=== PATIENT | female | born 2000 | race Caucasian/White ===

== ENCOUNTER 2023-01-05 17:23 | Emergency (ER) | payer OTHER, SELFPAY ==
[2023-01-05 17:41] VITALS: BP 102/68; PULSE 124; RESP 18; TEMP 37.7; O2SAT 97; BMI 32.5
--- NOTE | 2023-01-05 17:48 | ED_ITS ---
HPI - General Adult General Chief complaint: Skin/Abscess/Foreign Body <Thony Osborne - Last Filed: 01/05/23 17:49> Stated complaint: Cyst on L thigh <Thony Osborne - Last Filed: 01/05/23 17:49> Time Seen by Provider: 01/05/23 18:32 <Thony Osborne - Last Filed: 01/05/23 17:49> Source: patient <RENA Krishnan - Last Filed: 01/06/23 16:54> Mode of arrival: ambulatory <RENA Krishnan - Last Filed: 01/06/23 16:54> Limitations: no limitations <RENA Krishnan - Last Filed: 01/06/23 16:54> History of Present Illness HPI narrative: 22-year-old female presents to ED for redness and swelling and left lower aspect of abdomen since yesterday. Patient states yesterday was a bump and she scratched the area and than is red and tender on palpation. Rest of thyroid negative for swelling, redness, fever, or chills. <RENA Krishnan - Last Filed: 01/06/23 16:54> Related Data Home medications: Previous Rx's Medication Instructions Recorded cephalexin 500 mg capsule 500 mg PO QID 7 days #28 caps 01/05/23 doxycycline hyclate 100 mg tablet 100 mg PO BID 7 days #14 tabs 01/05/23 naproxen 500 mg tablet 500 mg PO BID PRN pain 7 days #14 01/05/23 tabs ondansetron HCl 4 mg tablet 4 mg PO Q6-8H PRN nausea and 01/05/23 vomiting 3 days #12 tabs oxycodone 5 mg capsule 5 mg PO TID PRN pain 3 days #9 caps 01/05/23 <Thony Osborne - Last Filed: 01/05/23 17:49> Allergies/adverse reactions: Allergies Allergy/AdvReac Type Severity Reaction Status Date / Time doxycycline AdvReac Vomiting Verified 01/05/23 17:41 <Thony Osborne - Last Filed: 01/05/23 17:49> Review of Systems Review of Systems: left lower abdomen redness and swelling <RENA Krishnan - Last Filed: 01/06/23 16:54> Yes all other systems are reviewed and are negative <RENA Krishnan Last Filed: 01/06/23 16:54> [facility] Social History Social History: Social History Advance Directives: No Advance Directives Information Provided: No <Thony Osborne - Last Filed: 01/05/23 17:49> Physical Exam ED Vital Signs: Vital Signs - 24 hr 01/05/23 17:41 Temperature 99.8 F Pulse Rate 124 H Respiratory Rate 18 Blood Pressure 102/68 Pulse Oximetry 97 Oxygen Delivery Method Room Air BMI result Body Mass Index 32.5 <Thony Osborne - Last Filed: 01/05/23 17:49> Vital Signs - 24 hr 01/05/23 17:41 Temperature 99.8 F Pulse Rate 124 H Respiratory Rate 18 Blood Pressure 102/68 Pulse Oximetry 97 Oxygen Delivery Method Room Air BMI result Body Mass Index 32.5 <RENA Krishnan Last Filed: 01/06/23 16:54> Const General: cooperative, healthy appearing, comfortable, no acute distress, well developed, alert, awake and Physically active <RENA Krishnan Last Filed: 01/06/23 16:54> Orientation/consciousness: oriented to person, oriented to place, oriented to time and patient oriented x3 <RENA Krishnan Last Filed: 01/06/23 16:54> HENMT Head: Yes normal to inspection, Yes No palpable skull fracture present, Yes normocephalic, Yes atraumatic and No abrasion <RENA Krishnan Last Filed: 01/06/23 16:54> Eyes General: appearance normal, both eyes and all related structures <RENA Krishnan Last Filed: 01/06/23 16:54> Neck Neck: Yes normal visual inspection, Yes full ROM, Yes no lymphadenopathy, Yes no meningeal signs, Yes trachea midline, Yes supple, No anterior neck swelling and No tender <RENA Krishnan Last Filed: 01/06/23 16:54> Chest Chest palpation & inspection: normal inspection of the chest and normal palpation of entire chest wall <RENA Krishnan Last Filed: 01/06/23 16:54> Resp Effort & Inspection: normal respiratory effort and able to speak in complete sentences <RENA Krishnan - Last Filed: 01/06/23 16:54> Auscultation: clear to auscultation bilaterally <RENA Krishnan Last Filed: 01/06/23 16:54> Cardio Jugular venous distension: no JVD <RENA Krishnan - Last Filed: 01/06/23 16:54> Heart sounds: S1 normal heart sound present and S2 normal heart sound present <RENA Krishnan - Last Filed: 01/06/23 16:54> GI Inspection: Yes normal to inspection and No abdominal wall ecchymosis <RENA Krishnan Last Filed: 01/06/23 16:54> Palpation (GI): Soft to palpation, not firm, Tenderness to palpation present (GI) in the LLQ, no guarding and not rigid <RENA Krishnan - Last Filed: 01/06/23 16:54> Abdomen image: 1. positive for redness and tenderness on palpation. negative for fluctulance. area is hard. no pus drainage. left lower extremity normal and negative for swelling/redness/red streaks/tenderness/calf pain <Thony Osborne - Last Filed: 01/05/23 17:49> 1. positive for redness and tenderness on palpation. negative for fluctulance. area is hard. no pus drainage. left lower extremity normal and negative for swelling/redness/red streaks/tenderness/calf pain <RENA Krishnan Dorian Last Filed: 01/06/23 16:54> General: No CVA tenderness and Yes no CVA tenderness <RENA Krishnan Last Filed: 01/06/23 16:54> Back/Spine/Pelvis Back: no CVA tenderness, No CVA tenderness and No back tenderness <RENA Krishnan Last Filed: 01/06/23 16:54> Skin General skin exam: no rashes or lesions noted and elasticity normal <RENA Krishnan Last Filed: 01/06/23 16:54> Neuro General: oriented to person, oriented to place, oriented to time, patient oriented x3, gait normal, tone normal, moves all extremities, Normal light touch and pain sensation, no meningeal signs, no focal motor deficits, CN's II-XI intact bilaterally and normal sensation to monofilament <RENA Krishnan Last Filed: 01/06/23 16:54> Extrem Other: Left lower extremity normal negative for swelling, redness, tenderness, re d streaks, calf pain <RENA Krishnan - Last Filed: 01/06/23 16:54> General: Yes normal to inspection and Yes full ROM <RENA Krishnan Last Filed: 01/06/23 16:54> Psych Appearance: grossly normal, well kempt and not disheveled <RENA Krishnan Last Filed: 01/06/23 16:54> Course Course Course Narrative: 22 year old female presents for evaluation of a cyst to her left upper leg. Not visualized in triage <Thony Osborne - Last Filed: 01/05/23 17:49> Reevaluation(s) Reevaluation #1: Bedside ultrasound placed every redness which shows cobblestone cellulitis skin changes and negative for pus collection. Patient educated on warm compress 4 times a day for 15 minutes compliance with antibiotics <RENA Krishnan Last Filed: 01/06/23 16:54> Time: 19:19 <RENA Krishnan Last Filed: 01/06/23 16:54> Medical Decision Making Medical Decision Making MDM Narrative: 22-year-old female presents to the ED for painful area redness left lower abdominal area tenderness on palpation. Patient not in distress. Ultrasound negative for pus collection more cellulitic, stone presentation. Early abscess versus cellulitis. Left lower extremity negative for swelling, redness, red streaks, calf pain, ecchymosis, bluish black discoloration. History physical exam not concerned for DVT, compartment syndrome, arterial occlusion. Not Suspecting fracture or necrotizing fascitis <RENA Krishnan Last Filed: 01/06/23 16:54> Differential Diagnosis Differential Diagnoses: The differential diagnosis associated with the presentation includes (Cellulitis, abscess,) <RENA Krishnan Last Filed: 01/06/23 16:54> Prescription Management I considered prescription management with: Pain Medication and Antibiotic <RENA Krishnan Last Filed: 01/06/23 16:54> Discharge Plan Discharge Clinical Impression: Cellulitis <Thony Osborne - Last Filed: 01/05/23 17:49> Patient Disposition: Home, Self-Care <Thony Osborne - Last Filed: 01/05/23 17:49> Instructions: Cellulitis (ED), Cellulitis (DC), Warm Compress or Soak (ED) <Thony Osborne - Last Filed: 01/05/23 17:49> Additional Instructions: Return to the ED for worsening pain, increased swelling, worsening redness, red streaks, pus discharge, foul odor, fever, chills, swelling of left lower extremity, or any other concerning symptoms. Please follow-up with primary care provider. Recommend warm compresses 4 times a day for 15 minutes. <Thony Osborne - Last Filed: 01/05/23 17:49> Prescriptions: New cephalexin 500 mg capsule 500 mg PO QID 7 Days Qty: 28 0RF doxycycline hyclate 100 mg tablet 100 mg PO BID 7 Days Qty: 14 0RF ondansetron HCl 4 mg tablet 4 mg PO Q6-8H PRN (Reason: nausea and vomiting) 3 Days Qty: 12 0RF naproxen 500 mg tablet 500 mg PO BID PRN (Reason: pain) 7 Days Qty: 14 0RF oxycodone 5 mg capsule 5 mg PO TID PRN (Reason: pain) 3 Days Qty: 9 0RF Rx Instructions: Partial Fill upon patient request. for severe pain <Thony Osborne - Last Filed: 01/05/23 17:49> Stand Alone Forms: Work/School Release <Thony Osborne - Last Filed: 01/05/23 17:49> Interventions: ED Discharge Assessment Last Done: 01/05/23 19:36 <Thony Osborne - Last Filed: 01/05/23 17:49> Discharge Date/Time: 01/05/23 19:36 <Thony Osborne - Last Filed: 01/05/23 17:49> Print Language: Ecuadorean <Thony Osborne - Last Filed: 01/05/23 17:49>
== END 2023-01-05 19:36 | disposition home or self-care (01) ==
PROVIDERS: Emergency Provider Emergency Medicine
DX: L03.311 Cellulitis of abdominal wall (principal); R10.32 Left lower quadrant pain
CPT/HCPCS: 99282; 99283

== ENCOUNTER 2025-08-06 12:56 | Outpatient (AMB) | payer OTHER, SELFPAY ==
--- OUTSIDE RECORDS SUMMARY | 2024-03-12 08:00 | XMS_ITS ---
Author Organization [employer] Address [facility] [address] [address] Care Team Providers Care Awning Frame Maker Name Role Phone Lily Coleman Unavailable [phone] DIANE LOGAN Unavailable [phone] REASON FOR VISIT MED CHECK Encounters Encounter Location Date Provider Diagnosis [email or web address] [address] [address] 03/12/2024 DIANE LGOAN Encounter for surveillance of contraceptive pills Z30.41 Assessments Encounter Date Diagnosis (ICD Code) Assessment Notes Treatment Notes Treatment Clinical Notes Section Notes 03/12/2024 Encounter for surveillance of contraceptive pills (ICD-10 - Z30.41) No contraindications to estrogen-containing contraception. Reviewed symptoms of thromboembolic events using the ACHES acronym. Reviewed importance of safer sex and encouraged condom use. 03/12/2024 Other Plan Of Treatment Treatment Notes Assessment Notes Encounter for surveillance o f contraceptive pills No contraindications to estrogen-contain ing contraception. Reviewed symptoms of thromboembolic events using the ACHES acronym. Reviewed importance of safer sex and encouraged condom use. Next Appt Details Follow Up: prn, Reason: Progress Notes * SHANEKA COTEDOB:2000 (25 yo F)Acc No.[id number]:03/12/2024 PROGRESS NOTES Patient: SHANEKA LOU Provider: Keagan LOGAN MD :2000 A ge:23 Y S ex:Female Date:03/12/2024 Address:[address] [place] [address] [address] [id number] Subjective: * Chief Complaints: * 1 . MED CHECK. * HPI: G YN: Shaneka is a 23 yo here for hormonal contraception follow-up. She is happy with her choice of contraceptives. Contraception: C ontraception: O ral contraceptives (OCPs) Sprintec Last menstrual period: _ . Menses Duration: _ . Menstrual Frequency: _ . Menstrual Quality: _ . * ROS: G eneral/Constitutional: Patient denies w eight gain, weight loss. D enies H eadache. O phthalmologic: Denies E ye problems. B reast: Denies B reast pain. C ardiovascular: Denies C hest pain. G astrointestinal: Denies A bdominal pain. D enies N ausea. D enies V omiting. W omen Only: Denies H eavy bleeding during menses. G enitourinary: Denies A bdominal pain/swelling. M usculoskeletal: Denies L eg cramps. * Medical History: O ther asthma, Chlamydial infection, unspecified, Gonococcal infection, unspecified, Endometriosis, unspecified, Pelvic Pain, Personal history of other diseases of the female genital tract, COVID-19. * Client Service Supervisor History: G ravida/ Para 1 /0. S exual activity c urrently sexually active. L ast Pap Smear: P ap not indicated due to age. L MP and menses . H istory of STD's: C hlamydia, Gonorrhea. B irth Control: c ondoms. G ardasil: h as not had vaccine. * OB History: T otal pregnancies 1 . T otal living children 0 . M iscarriage(s) 1 - no surgery needed. Objective: * Vitals: * Examination: G eneral Examination: GENERAL APPEARANCE: w ell developed, well nourished. ? Assessment: * Assessment: 1. E ncounter for surveillance of contraceptive pills - Z30.41 (Primary) Plan: * Treatment: * Preventive Medicine: T here are risks to being on estrogen-containing contraception (pills, patch, vaginal ring.) The risks are low for healthy people. The risks increase with the presence of high blood pressure, diabetes, migraines with aura, a family history of clotting disorders and if you are a smoker over the age of 35. It appears to me that you have none of these risk factors. Despite not having risk factors, your risk is not zero. The biggest and scariest risk is the formation of blood clots in your blood vessels, which can lead to heart attacks, stroke, pulmonary embolism and . I want you to be aware of the warning signs using the ACHES acronym. You should call immediately with severe Abdominal pain, Chest pain, severe Headaches, Eye changes, or Severe leg cramps. * Follow Up: p rn * Images: Billing Information: * Visit Code: * Procedure Codes: * Electronic signature of DIANE LOGAN MD on 08/06/2025 at 01:18 PM EST Sign off status: Pending * Provider: Keagan LOGAN MD Date: 0 03/12/2024 Generated for Brayodn guerrero/Lorena/Antolinitting on: 10/06/2024 01:18 PM EST History and Physical Notes * HPI (History of Present Illness) Category Sub-Category Detail Notes Category Not es [employer] Last menstrual period: Menses Duration: Menstrual Frequency: Menstrual Quality: Contraception: Contraception:: Oral contracepti ves (OCPs) Sprintec Examination Category Sub-Category Detail Notes Category Not es General Examination GENERAL APPEARANCE: well developed , well nourished
--- OUTSIDE RECORDS SUMMARY | 2024-11-13 08:00 | XMS_ITS ---
Author Organization [employer] Address [facility] [address] [address] Care Team Providers Care Windows Server Architect Name Role Phone Lily Coleman Unavailable [phone] DIANE LOGAN Unavailable [phone] REASON FOR VISIT Annual SUPERVISOR GRINDING Physical Encounters Encounter Location Date Provider Diagnosis [facility] [address] [address] 11/13/2024 DIANE LOGAN Encounter for gynecological examination (general) (routine) without abnormal findings Z01.419 and Encounter for screening for infections with a predominantly sexual mode of transmission Z11.3 Assessments Encounter Date Diagnosis (ICD Code) Assessment Notes Treatment Notes Treatment Clinical Notes Section Notes 11/13/2024 Encounter for gynecological examination (general) (routine) without abnormal findings (ICD-10 - Z01.419) Discussed cervical cancer screening with cytology every 3 years as per ASCCP guidelines. Advised continued annual pelvic exams. Patient encouraged to increase her level of exercise. SBE technique encouraged/tau ght. Safe sexual practices and STI prevention discussed. 11/13/2024 Encounter for screening for infections with a predominantly sexual mode of transmission (ICD-10 - Z11.3) Plan Of Treatment Treatment Notes Assessment Notes Encounter for gynecological examination (general) (routine) without abnormal findings Discussed cervical cancer screening with cytology every 3 years as per ASCCP guidelines. Advised continued annual pelvic exams. Patient encouraged to increase her level of exercise. SBE technique encouraged/taught. Safe sexual practices and STI prevention discussed. Next Appt Details Follow Up: 1 Year, Reason: Y early Clerical And Office Support Workers Exam Progress Notes * SHANEKA COTEDOB:2000 (25 yo F)Acc No.[id number]:11/13/2024 PROGRESS NOTES Patient: SHANEKA LOU Provider: Keagan LOGAN MD :2000 A ge:24 Y S ex:Female Date:11/13/2024 Address:[address] [place] [address] Subjective: * Chief Complaints: * 1 . Annual SUPERVISOR GRINDING Physical. 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 She delivered a baby girl on 09/05/24. She has had her visit. S he has been in state of good health since her last exam. She has the following concerns: S he has received the [employer] Covid-19 vaccine. R elationship status: *partnered for . She is sexually active. Sexual partner(s): male. She does wish to have STI testing. She was treated for Chlamydia last year and canceled her appointment in 02/2024 for rescreening. She accepts CDC- recommended GC/CT screening. M enses: *monthly, lasting 5-7 days, heavier to start, then tapering. Overall moderate flow. No intermenstrual bleeding. C ontraception: Nexplanon - inserted 09/07/24 T he patient has never had an abnormal pap. Last pap 11/12/23 - NIL. Next due in 2026. T he patient does* exercise. She exercises x 1 days/week by using the treadmill or stair stepper. She also walks when she can. * ROS: A nnual Clerical And Office Support Workers Exam ROS: Bowel habit changes d enies. B ladder symptoms d enies. V aginal discharge, unusual d enies. V aginal itch or odor d enies. w eight or appetite changes d enies. C hest pains, SOB d enies. d epression d enies.? B reast: Denies B reast lump. D enies N ipple discharge.? H ematology: Denies S wollen glands. S kin: Patient denies c hanging moles. P sychiatric: Denies A nxiety. * Medical History: * Clerical And Office Support Workers History: G ravida/ Para 2 /1011. S exual activity c urrently sexually active. L ast Pap Smear: P ap not indicated due to age. L MP and menses . H istory of STD's: C hlamydia, Gonorrhea. B irth Control: N explanon, inserted 09/07/24. G ardasil: h as not had vaccine. * OB History: T otal pregnancies 2 . T otal living children 1 . N VD 1 . M iscarriage(s) 1 - no surgery needed. P regnancy # 1: n ormal spontaneous vaginal delivery (), 09/05/24, girl, 3165 g. Objective: * Vitals: * Examination: G eneral Examination: GENERAL APPEARANCE: i n no acute distress,well developed, well nourished,utilization management manager present in room. HEAD: n ormocephalic, atraumatic. NECK/THYROID: n abhilash supple, full range of motion,thyroid normal. LYMPH NODES: n o axillary or supraclavicular adenopathy.? SKIN: n ormal,good turgor,no rashes,no suspicious lesions.? BREASTS: n ormal,no dimpling,no discharge,no drainage,no masses palpable bilaterally,nontender. ABDOMEN: s oft, non-tender, non distended without masses or hepatosplenomegay. BACK: n o costovertebral angle tenderness. FEMALE GENITOURINARY: V ulva without lesions or masses, vagina pink without abnormal discharge, lesions or masses, cervix appears normal and is not tender to palpation, uterus is normal size, mobile, nontender and anteverted, ovaries are not palpable. NEUROLOGIC: a lert and oriented,gait normal. PSYCH: a lert, oriented,cognitive function intact,cooperative with exam,good eye contact,mood/affect full range,speech clear. Assessment: * Assessment: 1. E ncounter for gynecological examination (general) (routine) without abnormal findings - Z01.419 (Primary) 2 . E ncounter for screening for infections with a predominantly sexual mode of transmission - Z11.3 Plan: * Treatment: * Follow Up: 1 Year (Reason: Yearly Clerical And Office Support Workers Exam) * Images: Billing Information: * Visit Code: 74333 Preventive Care Est Pt. Age 18-39. 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 She delivered a baby girl on 09/05/24. She has had her visit. She has been in state of good health since her last exam. She has the following concerns: She has received the [employer] Covid-19 vaccine. Relationship status: *partnered for . She is sexually active. Sexual partner(s): male. She does wish to have STI testing. She was treated for Chlamydia last year and canceled her appointment in 02/2024 for rescreening. She accepts CDC-recommended GC/CT screening. Menses: *monthly, lasting 5-7 days, heavier to start, then tapering. Overall moderate flow. No intermenstrual bleeding. Contraception: Nexplanon - inserted 09/07/24 The patient has never had an abnormal pap. Last pap 11/12/23 - NIL. Next due in 2026. The patient does* exercise. She exercises x 1 days/week by using the treadmill or stair stepper. She also walks when she can. Examination Category Sub-Category Detail Notes Category Not es General Examination GENERAL APPEARANCE: in no ac [place] distress, well developed, well nourished, utilization management manager present in room HEAD: normocephalic, atrau matic NECK/THYROID: neck supple, full ra nge of motion, thyroid normal ABDOMEN: soft, non-tender, no n distended without masses or hepatosplenomegay NEUROLOGIC: alert and oriented, gait normal SKIN: normal, good turgor, no rashes, no suspicious lesions BACK: no costovertebral an gle tenderness BREASTS: normal, no dimpling, no discharge, no drainage, no masses palpable bilaterally, nontender LYMPH NODES: no axillary or supra clavicular adenopathy PSYCH: alert, oriented, cog nitive function intact, cooperative with exam, good eye contact, mood/affect full range, speech clear FEMALE GENITOURINARY: Vulva without lesi ons or masses, vagina pink without abnormal discharge, lesions or masses, cervix appears normal and is not tender to palpation, uterus is normal size, mobile, nontender and anteverted, ovaries are not palpable
[2025-08-06 13:12] VITALS: BP 100/70; PULSE 96; TEMP 36.7; O2SAT 99; BMI 35.3
--- NOTE | 2025-08-06 13:12 | A.OFFPC_ITS ---
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 Allergies doxycycline Adverse Reaction (Verified 08/06/25 13:13) Vomiting Medication List - Last Reconciled 08/06/25 by Kristen Sharpe MD Tobacco use date assessed: 08/06/25 Dental Screening Dental Screen Date: 08/06/25 Did you have a dental visit in the last 12 months?: Yes Did you have a dental problem in the last 6 months where you did not have access to dental care?: No Was dental information given to patient?: Patient has dentist HPI HPI Comments History of Present Illness Details The patient is a 25 year old F with PMH endometriosis, eczema, MDD, and syncope presenting to [facility] care as a new patient. The patient's only current medication is an asthma inhaler. The patient reports 3 total episodes of syncope since July of last year, with the most recent event occurring last month. The episodes are preceded by dizziness and a starry sensation, and they occur randomly. The patient denies urinary incontinence or tongue pain during these events, and observers noted the patient just went pale. Prior EKG at [facility] was reportedly normal. The patient has a history of eczema and developed a widespread rash over the patient's entire body after giving . The rash appeared on the arms and legs in spots the patient is not used to, and topical steroids did not resolved it. Past medical history is notable for endometriosis, diagnosed around age 20-21, which was managed with control. Obstetric history includes one with a slightly early delivery that was not concerning. The patient's last Pap smear was before becoming in December of last year. The patient requests a referral to a psychiatrist or therapist due to feeling paralyzed and unable to accomplish tasks, a feeling that has intensified recently. The patient does not feel depressed and denies any thoughts of harming the patient's baby. There is a family history of diabetes. [facility] Family History (Updated 08/06/25 @ 13:20 by Treasure Chairez MA) Father Substance abuse Mother No problems noted. Social History Housing: House Patient Tobacco Use Status: Current someday Tobacco user (Occasionally smokes marijuana) e-Cigarette/Vaping Use: Never Used service: No Current occupational status: unemployed Cognitive needs: No Hearing needs: No Vision needs: No Questionnaire PHQ-9 Over the last 2 weeks, how often have you been bothered by any of the following problems? 1. Little interest or pleasure in doing things: several days 2. Feeling down, depressed, or hopeless: several days 3. Trouble falling or staying asleep, or sleeping too much: several days 4. Feeling tired or having little energy: several days 5. Poor appetite or overeating: several days 6. Feeling bad about yourself - or that you are a failure or have let yourself or your family down: not at all 7. Trouble concentrating on things, such as reading the newspaper or watching television: not at all 8. Moving or speaking so slowly that other people could have noticed. Or the opposite - being so fidgety or restless that you have been moving around a lot more than usual: more than half the days 9. Thoughts that you would be better off or of hurting yourself in some way: not at all Total score: 7 Depression Screening Interpretation: Positive (Referred to psych for management of depression.) Depression Screening Done: Yes Source: Developed by Drs. Willie Gonsalez, Monique Alvares, Karl Mcclain and colleagues, with an educational meliton from [email or web address]. Thrive Questionnaire Date Thrive assessed: 08/06/25 I am a: Patient What is your living situation today?: I have a steady place to live Within the past 12 months, did the food you bought not last and you didn't have the money to get more?: Sometimes True Within the past 12 months, did you worry whether your food would run out before you got money to buy more?: Sometimes True Do you have trouble paying for medicines?: No Do you have trouble getting transportation to medical appointments?: No Do you have trouble paying your heating and electricity bill?: No Do you have trouble taking care of your child, family member or friend?: No Do you have trouble with day-to-day activities such as bathing, preparing meals, shopping, managing finances, etc.?: No Are you currently unemployed and looking for a job?: No Are you interested in more education?: No Please select the resources that you would like help with: None Currently or been in a relationship where the following occur: No concerns reported THRIVE Score: 2 AUDIT C Alcohol Use Questionnaire (AUDIT-C) 1. How often do you have a drink containing alcohol?: Monthly or less 2. How many drinks containing alcohol do you have on a typical day when you are drinking?: 1 or 2 3. How often do you have six or more drinks on one occasion?: Never Total Score: 1 ANDREA-7 AMB Questionnaire ANDREA-7 Date ANDREA - 7 assessed: 08/06/25 Feeling nervous, anxious, or on edge: 1 = Several days Not being able to stop or control worryin = Several days Worrying too much about different things: 1 = Several days Trouble relaxin = Several days Being so restless that it is hard to sit still: 1 = Several days Becoming easily annoyed or irritable: 0 = Not at all Feeling afraid as if something awful might happen: 1 = Several days Total ANDREA-7 score (0-4 normal; 5-9 mild; 10-14 moderate; 15-21 severe): 6 Source: Developed by Drs. Willie Gonsalez, Monique Alvares, Karl Mcclain and colleagues, with an educational meliton from [email or web address]. Review of Systems Const Details: As per HPI. Physical exam (Primary Care) Vital Signs: Last Vital Signs Temp 98.1 F 08/06/25 13:12 Pulse 96 08/06/25 13:12 BP 100/70 08/06/25 13:12 Pulse Ox 99 08/06/25 13:12 Oxygen Delivery Method Room Air 08/06/25 13:12 BMI result Body Mass Index 35.3 Tobacco/Smoking Status: Tobacco use Status Tobacco use date assessed 08/06/25 08/06/25 13:24 Patient Tobacco Use Status Current someday Tobacco ( 08/06/25 13:24 Occasionally smokes marijuana) Tobacco use type 08/06/25 13:24 e-Cigarette/Vaping Use Never Used 08/06/25 13:24 PHQ-9: PHQ-9 Score PHQ-9: Total score 7 08/06/25 13:12 Depression Screening Interpretation: Positive (Referred to psych for management of depression.) Thrive Assessment: Date of Thrive Assessment Date Thrive assessed 08/06/25 08/06/25 13:12 Currently or been in a relationship where the following occur: No concerns reported Const Other: Pertinent findings are in BOLD GENERAL APPEARANCE NAD, activity normal for age, well developed/ well nourished, no cyanosis, pallor, or diaphoresis. EYES lids/conjunctiva normal. EARS/NOSE/THROAT Mucous membranes moist, nares normal, lips/teeth normal uvula midline without oral pharyngeal erythema, exudate or swelling TMs normal bilaterally. No lymphangitis/lymphedema. HEAD/NECK normocephalic atraumatic, no facial trauma, neck is supple. RESPIRATORY respiratory effort normal, speaks in full sentences, no tripod position, no accessory muscle use. Lungs clear to auscultation without rhonchi, wheezes, rales CARDIAC Regular rate and rhythm, no edema. ABDOMINAL Soft, ND/NT. No evidence of fluid wave. No pulsatile masses on exam, rebound tenderness, Corrales sign or pain over Mcburney's point. MUSCLES/EXTREMITIES No abnormal range of motion, no swelling. SKIN Warm, pink and dry. No rashes, dermatoses, petechiae or lesions. Rash on arms and leg consistent with eczema. NEUROLOGICAL Speech is clear and appropriate. Normal level of consciousness. Gait and coordination are normal. 5/5 strength in all extremities. PSYCH Normal mood and affect. Judgement/competence is appropriate Coding Level of Care Code New Pt Level 4 (25520) Diagnoses Other eczema L30.8 Eczema type: other Endometriosis N80.9 Syncope, unspecified syncope type R55 Syncope type: unspecified Major depressive disorder, remission status unspecified, unspecified whether recurrent F32.9 Major depression recurrence: unspecified whether recurrent Active/Remission status: remission status unspecified Asthma, unspecified asthma severity, unspecified whether complicated, unspecified whether persistent J45.909 Asthma severity: unspecified severity Asthma persistence: unspecified Asthma complication type: unspecified Time Spent (min) 45 Assessment & Plan Assessment & Plan (1) Eczema: Code(s): L30.9 - Dermatitis, unspecified Category: Medical Qualifiers: Eczema type: other Qualified Code(s): L30.8 - Other specified dermatitis Plan: - The patient reports a new rash , which has been partially responsive to oral medications but not topical steroids. - A referral to dermatology will be placed for further evaluation and potential biopsy. 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 (3) Fainting: Code(s): R55 - Syncope and collapse Category: Medical Qualifiers: Syncope type: unspecified Qualified Code(s): R55 - Syncope and collapse Plan: - The current presentation is most consistent with vasovagal syncope. - Plan is to monitor for now. - If episodes recur, especially frequently, the patient should notify the clinic for further evaluation, possibly to investigate for a cardiac etiology. (4) MDD (major depressive disorder): Code(s): F32.9 - Major depressive disorder, single episode, unspecified Category: Medical Qualifiers: Major depression recurrence: unspecified whether recurrent Active/Remission status: remission status unspecified Qualified Code(s): F32.9 - Major depressive disorder, single episode, unspecified Plan: - The patient requests mental health support for feelings of being paralyzed and unable to complete tasks, but denies depression. - A referral will be placed for psychiatry/therapy. - The patient was advised to proactively check with insurance for available providers and to advise the clinic if a specific referral is needed, as there may be delays with the internal referral. (5) Asthma: Code(s): J45.909 - Unspecified asthma, uncomplicated Category: Medical Qualifiers: Asthma severity: unspecified severity Asthma persistence: unspecified Asthma complication type: unspecified Qualified Code(s): J45.909 - Unspecified asthma, uncomplicated Plan: - The patient has a history of asthma and uses an inhaler, which is listed as the patient's only medication. - The patient will continue current management. Plan I introduced myself as the patient's new primary care physician and confirmed consent for the recording application. We discussed the episodes of passing out, which I explained sound like vasovagal syncope, and I advised we would monitor for now. I instructed the patient to let us know if these episodes recur, especially if they become more frequent, so we can consider further cardiac evaluation. Regarding the rash, I recommended a referral to a shipping and receiving coordinator for evaluation, given its unusual presentation and lack of response to topical steroids. For the patient's request for mental health services, I initiated a referral to psychiatry and advised the patient to also check with the patient's insurance for providers and to notify us if a specific referral is needed, acknowledging potential wait times. I outlined the plan to order general labs including thyroid, liver, kidney, lipids, and iron panels, as well as routine HIV and Hepatitis C screenings. We scheduled a follow-up appointment in two months for a physical exam and to review the results. Orders: Orders Complete Blood Count no Diff Today Z00.00 - Encounter for general adult medical examination without abnormal findings Comprehensive Met. Panel Today Z00.00 - Encounter for general adult medical e xamination without abnormal findings Lipid Panel Today Z00.00 - Encounter for general adult medical examination without abnormal findings Vitamin B12 and Folate Today D64.9 - Anemia, unspecified, Z00.00 - Encounter for general adult medical examination without abnormal findings IRON PROFILE Today Z00.00 - Encounter for general adult medical examination without abnormal findings Hemoglobin A1c Today Z00.00 - Encounter for general adult medical examination without abnormal findings TSH reflex Free T4 Today Z00.00 - Encounter for general adult medical examination without abnormal findings Vitamin D 25-OH Total Today Z00.00 - Encounter for general adult medical examination without abnormal findings HIV Ab/Ag Today Z00.00 - Encounter for general adult medical examination without abnormal findings Hepatitis C Antibody Reflex Today Z00.00 - Encounter for general adult medical examination without abnormal findings Referrals Dermatology Referral L30.9 - Dermatitis, unspecified, Z00.00 - Encounter for general adult medical examination without abnormal findings Psychiatry Referral F32.9 - Major depressive disorder, single episode, unspecified
--- OUTSIDE RECORDS SUMMARY | 2025-08-06 13:18 | XMS_ITS | Clinical Summary ---
Author Organization [facility] Address [address] [place] [id number] Phone Care Team Providers Care Mail Officer Name Role Phone Unavailable Primary Care Provider Unavailabl e Allergies Active Allergy Reactions Criticality Noted Date Comments Environmental Rash,Runny nose Low 09/05/2017 Dog dander, cat dander Medications albuterol HFA 108 (90 Base) MCG/ACT inhalerIndications :Uncomplicated asthma, unspecified asthma severity, unspecified whether persistent Inhale 2 puffs every 4 (four) hours as needed for wheezing or shortness of breath. 2 Units 1 Active triamcinolone 0.1 % creamIndications:E czema, unspecified type Apply topically 2 (two) times a day as needed for rash. Mix entire tube with 16 oz container of Cerave cream 80 g 1 Active Cholecalciferol (Vitamin D) 50 MCG (2000 UT) capsuleIndications :Vitamin D deficiency Take 1 capsule by mouth daily. 90 capsule 3 2 Active norelgestromin-eth inyl estradiol 150-35 MCG/24HRIndication s:Initial encounter for management of contraceptive patch use Apply 1 patch each week for 3 weeks, then remove for 1 week. 3 patch 3 2 Active Active Problems Problem Noted Date Diagnosed Date Allergic rhinitis 01/17/2022 Eczema 01/17/2022 Resolved Problems Problem Noted Date Diagnosed Date Resolved Date Mild intermittent asthma without complication 11/12/19 15 02/10/2020 Overview (11/24/2018): Saw Pulm 2017 - advised to use Albuterol as needed 2018 - can not remember the last time she needed it Immunizations Immunization Administration Dates Next Due COVID-19 Pfizer, monovalent, 12+ years 1,07/28/2021 DTaP 5 10/09/2005, 3,01/30/2002,11/11,2001 H1N1 08/30/2009 HPV Vaccine 9 Valent 05/17/2015 HPV, Quadrivalent 01/14/2015,11/12/2014 Hep A, ped/adol 05/17/2015,11/12/2014 Hep B, ped/adol 01/30/2002,2001,2001 Hib (PRP-T) 11/18/2002, 2,2001,09/03 IPV 10/09/2005, 2,2001,09/03 Influenza Split 11/04/2013 Influenza, injectable, trivalent 06/14/2009,09/17 Influenza, intranasal, trivalent 09/05/2012,08/16,06/30/2010 MMR 10/09/2005,07/15/2002 Meningococcal B Trumenba 09/19/2020,02/10/2020 Meningococcal Conj (Menactra) MCV4P 11/19/2017,1 11/06/2011 Pneumococcal Conjugate 02/05/2003,2001,2001,09/03 Tdap 09/05/2012 Varicella 04/16/2008,07/15/2002 Family History Medical History Relation Name Comments Autism Cousin Irritable bowel syndrome Mother Geneva Yeh Diabetes Paternal Grandmother Obesity Paternal Grandmother Relation Name Status Comments Cousin Alive Father Geovani Alive Father: Healthy Half-Sister Tobias Worthy Alive Maternal Grandmother Alive Materna l grandmother: Bipolar disorder,Hep C Mother Geneva Yeh Alive Mother: Healt hy Other No family histo ry of *Thrombophilia, , No family history of *Heart Disease, No family history of *Dental caries, No family history of *Sudden /SD under 55, No family history of *CVA/Stroke Paternal Grandmother Sister Venus Alive Sister: Alive a nd well Social History Tobacco Use Types Packs/Day Years Used Date Smoking Tobacco: Never Smokeless Tobacco: Never Tobacco Cessation:Counseling Given: Yes Comments:Never smoker Alcohol Use Standard Drinks/Week Comments No 0 (1 standard drink = 0.6 oz pur e alcohol) Hunger/Food Answer Date Recorded In the last 12 months, did y ou or your family ever eat less than you felt you should because there wasn't enough money for food? No 01/17/2022 Stable Housing Answer Date Recorded Are you worried that in the next 2 months you may not have stable housing? No 01/17/2022 Transportation Concerns Answer Date Rec orded In the last 12 months, have you or your family ever had to go without healthcare because you didn't have a way to get there? No 01/17/2022 Hazards in Home Answer Date Recorded Think about the place you li ve. Do you have problems with any of the following? Pests (mice or roaches), mold, no/not working smoke detectors, water leaks, no window guards. No 2021 Financing Utilities Answer Date Recorde d In the last 12 months, has t he electric, gas, oil, or water company threatened to shut off your services in your home? No 01/17/2022 Safety at Home Answer Date Recorded Are you or your family worried about feeling saf e in your home? No 01/17/2022 Outside Support Answer Date Recorded Do you feel that you need mo re support from other people or programs to help you care for yourself or your family? No 01/17/2022 Understanding Health Concerns Answer Da te Recorded Do you need help understandi ng your or your child's healthcare needs (diagnosis, medications, plan, etc.)? No 01/17/2022 Financing Health Concerns Answer Date R ecorded In the last 12 months, was t here a time when your child needed to see a doctor or get medications or supplies but could not because of cost? No 01/17/2022 Missing School or Work Answer Date Juventino rded Did you or your child miss s chool or work because of a health problem that could have been avoided? No 01/17/2022 Comments No Sex and Gender Information Value Date Recorded Sex Assigned at Not on file Legal Sex Female 5:22 PM EDT Gender Identity Not on file Sexual Orientation Bisexual 01/17/2022 10 :35 AM EDT Last Filed Vital Signs Vital Sign Reading Time Taken Comments Blood Pressure 117/78 05/07/2022 3:37 PM EDT Pulse 78 05/07/2022 3:37 PM EDT Temperature 36.6 C (97.8 F) 05/07/2022 3:37 PM EDT Respiratory Rate - - Oxygen Saturation - - Inhaled Oxygen Concentration - - Weight 86.6 kg (191 lb) 05/07/2022 3:37 PM EDT Height 164.5 cm (5' 4.75 ) 02/09/2022 11:32 AM E DT Body Mass Index 32.03 02/09/2022 11:32 AM EDT Plan of Treatment Health Maintenance Due Date Last Done Comments DTaP,Tdap,and Td Vaccines (7 - Td or Tdap) 09/05/2022 09/05/2012, 10/09/2005, 02/05/2003, Additional history exists HIV Screening 01/17/2023 01/17/2022, 05/2021, 09/19/2020 Syphilis Screening (consider for higher risk patients) 01/17/2023 01/17/2022, 04/24/2021, 09/19/2020 Influenza Vaccines (#1) 2025 11/04/19 14, 09/05/2012, 08/31/2011, Additional history exists COVID-19 Vaccine (2024-2 6 season) 2025 08/22/2021, 07/28/2021 Hepatitis B Vaccines Completed 01/30/2002, 2001, 2001 HIB Vaccines Completed 11/18/2002, 01/14, 2001, Additional history exists Pneumococcal Vaccine Completed 02/05/2003, 01/30/2002, 2001, Additional history exists IPV Vaccines Completed 10/09/2005, 04/16, 2001, Additional history exists MMR Vaccines Completed 10/09/2005, 07/15/2002 Varicella Vaccines Completed 04/16/2008, 07/15/2002 HPV Vaccines Completed 05/17/2015, 05/0 09/2014, 11/12/2014 Hepatitis A Vaccines Completed 05/17/2015, 11/12/19 15 Meningococcal Vaccine Completed 11/19/2017, 012 Men B Vaccine Completed 09/19/2020, 02/10/2020 Procedures * Due to [place] [employer] law, this organization might not be sharing sensitive test results. Procedure Name Priority Date/Time Associated Diagnosis Comments SURESWAB (ADV) VAGINITIS PLUS, TMA Routine 05/07/2022 4:13 PM EDT Coitus painful for female RPR Routine 01/17/2022 11:07 AM EDT Gonococcal infection from Last 3 Months or Most Recently Relevant to Health Maintenance Results * Due to [place] law, this organization might not be sharing sensitive test results. * (ABNORMAL) SureSwab (Adv) Vaginitis Plus, TMA (05/07/2022 4:13 PM EDT) BACTERIAL VAGINOSIS TEST NEGATIVE (NEG) [facility] Comment: No bacterial vaginosis targets by PCR detected in this patient's sample. Note: This assay uses real time traffic reporter-mediated amplification (TMA) for detection and quantification of ribosomal RNA from bacteria associated with bacterial vaginosis (BV), including Lactobacillus (L. gasseri, L. crispatus, and L. jensenii), Gardnerella vaginalis, and Atopobium vaginae. Christine Species POSITIVE(A) (NEG) [facility] Comment: Christine species group (C. albicans, C. tropicalis, C. parapsilosis, C. dubliniensis) targets by PCR detected in this patient's sample. Christine Glabrata, MARCELO NEGATIVE (NEG) [facility] Comment:No Christine glabrata targets by PCR detected in this patient's sample. SureSwab, T.vaginalis RNA NEGATIVE (NEG) [facility] Comment: No Trichomonas vaginalis targets by PCR detected in this patient's sample. Note: This assay uses real time traffic reporter-mediated amplification (TMA) for detection and quantification of ribosomal RNA from organisms associated with Christine species group (C. albicans, C. tropicalis, C. parapsilosis, C. dubliniensis), Christine glabrata, and Trichomonas vaginalis. Chlamydia Trachomatis, Amplified NEGATIVE (NEG) [facility] Comment: No Chlamydia Trachomatis RNA detected in this patient's sample (REFERENCE RANGE/NORMAL VALUE: NOT DETECTED) Note: This test uses traffic reporter- mediated amplification method to detect rRNA from C. Trachomatis N.GONORRHOEAE AMP PROBE NEGATIVE (NEG) [facility] Comment: No Neisseria Gonorrhoeae RNA detected in this patient's sample (REFERENCE RANGE/NORMAL VALUE: NOT DETECTED) NOTE: This test uses traffic reporter-mediated amplification method to detect rRNA from N.Gonorrhoeae. A negative result does not preclude infection. In the case of a negative urine result, testing of an endocervical(female) or urethral (male) specimen is recommended if there is high clinical suspicion of infection. Due to very high sensitivity of Nucleic Acid Amplification Test, false positive results may occur. Therefore, specimen handling is extremely important. In patients in whom the disease is unlikely, additional sample for testing should be considered after an initial positive result. The performance characteristics of this test have not been evaluated in children. The Aptima Combo2 assay is not intended for the evaluation of suspected sexual abuse or for other medico-legal indications. The ordering provider should assess if the patient had consensual sex without risk of sexual abuse. Consult the [facility] if needed. Contact phone number . Therapeutic failure or success cannot be determined with the Aptima Combo2 assay since nucleic acid may persist following appropriate antimicrobial therapy. The Centers for Disease Control and Prevention (CDC) recommends confirmatory retesting using culture or a different nucleic acid amplification test when positive results occur, if indicated. Testing performed or reported by [facility], a Service of [facility], [address] [place] [id number] Israel Gonzalez MD, [employer] [facility]# [id number] Swab (Vagina) 05/07/2022 4:1 3 PM EDT 05/07/2022 10:19 PM EDT us Nathalia Navarro DO LAB MICROBIOLOGY - GENERAL ORDER JEFFREY Final Result [facility] * RPR (01/17/2022 11:07 AM EDT) SYPHILIS SCREEN BY JOSUE NEGATIVE (NEG) [facility] Comment: Reference range: Negative This test was performed on the [employer] Patient Escort immunoassay system. RPR Titer NOT INDICATED [facility] T pallidum Antibodies (TP-PA) NOT INDICATED [facility] SYPHILIS INTERPRETATION Indicative of the absence of infection with Treponemal pallidum. Test may be negative in cases of incubating or early primary syphilis. Consider repeat testing in several weeks if clinical suspicion is high. [facility] Comment: Testing performed or reported by [facility], a Service of [facility], [facility] [place] [address] Israel Gonzalez MD, [employer] [facility]# [id number] Blood (Blood, Venous) 01/17/2022 11:07 AM EDT 01/17/2022 11:08 AM EDT us Shirley Kendrick MD LAB BLOOD ORDERABLES Final Result [facility] from Last 3 Months or Most Recently Relevant to Health Maintenance
--- OUTSIDE RECORDS SUMMARY | 2025-08-06 13:19 | XMS_ITS | Encounter Summary ---
Author Organization [facility] Address [address] [place] [phone] Phone Care Team Providers Care Branch Lending Manager Name Role Phone Shirley Kendrick MD Primary Care Provider Encounter Details Date Type Department Care Team (Late st Contact Info) Description 02/04/2014 Documentation [facility] [address], [place] [phone] Family Medicine, Physician [address] [place] [address] Social History Tobacco Use Types Packs/Day Years Used Date Smoking Tobacco: Never Assessed Comments Unknown Sex and Gender Information Value Date Recorded Sex Assigned at Not on file Legal Sex Female 5:22 PM EDT Gender Identity Not on file Sexual Orientation Bisexual 01/17/2022 10 :35 AM EDT documented as of this encounter Plan of Treatment Not on file documented as of this encounter Visit Diagnoses Not on filedocumented in this encounter Care Teams Branch Lending Manager Relationship Specialty Start Date End Date Shirley Kendrick MD [address] [place] [id number] PCP - General 04/26/17 12/16/22 documented as of this encounter
--- OUTSIDE RECORDS SUMMARY | 2025-08-06 13:19 | XMS_ITS | Clinical Summary ---
Author Organization [facility] Address [address] [place] [phone] Phone Care Team Providers Care Trailer Steerer Name Role Phone Pcp, Unknown Primary Care Provider Unavailabl e Allergies Active Allergy Reactions Criticality Noted Date Comments Doxycycline 11/03/2023 Medications No known medications Encounters Date Type Department Care Team Description 05/11/2025 1:38 AM EDT - 05/11/2025 2:30 AM EDT Emergency [facility] [address] [place] [address] Balaji Walden, DO Discharge Disposition: Home or Self Care from Last 3 Months Social History Tobacco Use Types Packs/Day Years Used Date Smoking Tobacco: Never Smokeless Tobacco: Never Tobacco Cessation:Counseling Given: Not Answered Alcohol Use Standard Drinks/Week Comments Never 0 (1 standard drink = 0.6 oz pur e alcohol) Education Answer Date Recorded Are you interested in more education? Not on jesus e 11/03/2023 Are you concerned about learning? Not on file 11/03/2023 No 11/03/2023 No 11/03/2023 Food Answer Date Recorded Within the past 6 months we worried whether our food would run out before we got money to buy more. Never True 05/10/2025 Within the past 6 months the food we bought just didn't last and we didn't have enough money to get more. Never True Residential Stability Answer Date Recor ded What is your housing situation today? I have reza sing 05/10/2025 How many times have you move d in the past 12 months? Zero (I did not move) 05/10/2025 Paying for Meds Answer Date Recorded Do you have trouble paying for medicines? No 05/10/2025 Paying Utility Bills Answer Date Record ed Do you have trouble paying your heating or elect ricity bill? No 05/10/2025 Transportation Answer Date Recorded Has the lack of transportati on kept you from medical appointments or from getting medications? No 05/10/2025 Digital Access Answer Date Recorded No 05/10/2025 Yes 05/10/2025 Do you have reliable internet access at home? Ye s 05/10/2025 Do you have a device (e.g., phone, tablet, computer) with a working camera? Yes 05/10/2025 Intimate Partner Violence Answer Date R ecorded Are you denied basic needs s uch as food, clothing, or medical care? Deferred 05/10/2025 In the past 12 months have y ou been in a relationship with a person who hurts, threatens, or tries to control you? Deferred 05/10/2025 Are you denied basic needs s uch as food, clothing, or medical care? Deferred 05/10/2025 In the past 12 months have y ou been in a relationship with a person who hurts, threatens, or tries to control you? Deferred 05/10/2025 Comments Unknown Sex and Gender Information Value Date Recorded Sex Assigned at Female 05/11/2025 1:46 AM EDT Legal Sex Female 9:57 AM EST Gender Identity Female 05/11/2025 1:46 AM EDT Sexual Orientation Don't know 05/11/2025 1: 46 AM EDT Last Filed Vital Signs Vital Sign Reading Time Taken Comments Blood Pressure 109/76 05/11/2025 2:20 AM EDT Pulse 95 05/11/2025 2:20 AM EDT Temperature 36.2 C (97.2 F) 05/11/2025 2:20 AM EDT Respiratory Rate 18 05/11/2025 2:20 AM EDT Oxygen Saturation 97% 05/11/2025 2:20 AM EDT Inhaled Oxygen Concentration - - Weight 93.4 kg (206 lb) 11/03/2023 10:41 AM EST Height 165.1 cm (5' 5 ) 11/03/2023 10:41 AM EST Body Mass Index 34.28 11/03/2023 10:41 AM EST Plan of Treatment Health Maintenance Due Date Last Done Comments DEPRESSION SCREENING 2013 SMOKING Hx and SMOKELESS TOB ACCO SCREENING 2014 HPV VACCINES (1 - 3-dose series) 2016 CHLAMYDIA SCREENING 2017 HEPATITIS C SCREENING 2019 HIV ONE-TIME SCREENING (18-6 5 YEARS) 2019 PAP SMEAR 2022 Adult Td,Tdap Booster 09/05/2022 09/05/2012 INFLUENZA VACCINE (#1) 2025 COVID-19 VACCINE (2024-2 6 season) 2025 HEPATITIS A VACCINES Aged Out No long er eligible based on patient's age to complete this topic HIB VACCINES Aged Out No longer eligi ble based on patient's age to complete this topic MENINGOCOCCAL VACCINES (ACWY) Aged Out No longer eligible based on patient's age to complete this topic MENINGOCOCCAL VACCINES (B) Aged Out N o longer eligible based on patient's age to complete this topic PNEUMOCOCCAL VACCINES (0-49 years) Aged Out No longer eligible based on patient's age to complete this topic Medical Devices Not on file Procedures Procedure Name Priority Date/Time Associated Diagnosis Comments URINE SEDIMENT STAT 05/10/2025 9:20 PM EDT URINE HCG STAT 05/10/2025 9:20 PM EDT URINALYSIS WITH REFLEX TO URINE CULTURE STAT 05/10/2025 9:20 PM EDT BASIC METABOLIC PANEL (BMP) STAT 05/10/2025 7:47 PM EDT CBC AND DIFFERENTIAL STAT 05/10/2025 7:47 PM EDT ECG 12-LEAD STAT 05/10/2025 7:41 PM EDT from Last 3 Months Results * (ABNORMAL) Urinalysis w/reflex Urine Culture (05/10/2025 9:20 PM EDT) COLOR Yellow Yellow [facility] CLARITY Clear [facility] GLUCOSE Negative Negative [facility] BILI Negative Negative [facility] KETONES Negative Negative [facility] SPECIFIC GRAVITY 1.015 1.005 - 1.030 [facility] BLOOD Negative Negative [facility] PH 7.0 5.0 - 8.0 [facility] Protein-UA Negative Negative [facility] NITRITE Negative Negative [facility] Leukocyte esterase, ur Trace(A) Negative [facility] Urine (Urine) 05/10/2025 9:2 0 PM EDT 05/10/2025 9:26 PM EDT Latricia Woosd PA-C LAB URINE ORDERABLES Final Result [address] [id number] * (ABNORMAL) Urine sediment (05/10/2025 9:20 PM EDT) WBC 0-4(A) NONE SEEN /hpf [facility] RBC 0-2(A) NONE SEEN /hpf [facility] URINE EPITHELIAL 0-4(A) NONE SEEN [facility] MUCUS 1+(A) NONE SEEN /hpf [facility] BACTERIA Trace(A) NONE SEEN /hpf [facility] 05/10/2025 9:20 PM EDT 05/10/2025 9:26 PM EDT Latricia Woods PA-C LAB URINE ORDERABLES Final Result Performing Organization Address [facility]/ZIP Co de Phone Number [address] [phone] * HCG, urine (05/10/2025 9:20 PM EDT) URINE TEST Negative Negative [facility] Urine (Urine) 05/10/2025 9:2 0 PM EDT 05/10/2025 9:26 PM EDT Latricia Woods PA-C LAB URINE ORDERABLES Final Result Performing Organization Address City/[facility]/ZIP Co de Phone Number [address] [address] * (ABNORMAL) CBC and differential (05/10/2025 7:47 PM EDT) WBC 11.50(H) 4.00 - 11.00 K/uL [facility] RBC 5.51(H) 4.00 - 5.20 M/uL [facility] HGB 13.8 12.0 - 16.0 g/dL [facility] HCT 43.8 36.0 - 46.0 % [facility] PLT 334 150 - 450 K/uL [facility] MCV 79.5(L) 80.0 - 100.0 fL [facility] MCH 25.0(L) 27.0 - 31.0 pg [facility] MCHC 31.5(L) 32.0 - 36.0 g/dL [facility] RDW 15.1(H) 11.5 - 14.5 % [facility] MPV 11.3 8.4 - 12.0 fL [facility] NRBC 0.00 0.00 /100 WBCs [facility] ABSOLUTE NRBC 0.00 0.00 K/uL [facility] DIFF METHOD Auto [facility] NEUTS 73.3 48.0 - 76.0 % [facility] LYMPHS 17.9(L) 18.0 - 41.0 % [facility] MONOS 3.8(L) 4.0 - 11.0 % [facility] EOS 4.3 0.0 - 5.0 % [facility] BASOS 0.4 0.0 - 1.5 % [facility] Granulocytes, immature (%) 0.3 0.0 - 0.9 % [facility] ABSOLUTE NEUTS 8.41(H) 1.92 - 7.60 K/uL [facility] ABSOLUTE LYMPHS 2.06 0.72 - 4.10 K/uL [facility] ABSOLUTE MONOS 0.44 0.16 - 1.10 K/uL [facility] ABSOLUTE EOS 0.50 0.00 - 0.50 K/uL [facility] ABSOLUTE BASOS 0.05 0.00 - 0.15 K/uL [facility] Granulocytes, immature 0.04 0.00 - 0.09 K/uL [facility] Blood 05/10/2025 7:47 PM EDT 05/10/2025 8:15 PM EDT Latricia Woods PA-C LAB BLOOD BKR ORDERABLES Fi nal Result Performing Organization Address [facility] Co de Phone Number [address] [address] * Basic metabolic panel (05/10/2025 7:47 PM EDT) SODIUM 138 133 - 146 mmol/L [facility] CHLORIDE 103 96 - 108 mmol/L [facility] POTASSIUM 3.7 3.3 - 5.1 mmol/L [facility] CO2 21 21 - 35 mmol/L [facility] BUN 14 6 - 19 mg/dL [facility] CREATININE 0.80 0.5 - 1.5 mg/dL [facility] GLUCOSE 79 70 - 99 mg/dL [facility] CALCIUM 9.4 8.4 - 10.3 mg/dL [facility] EGFR 106 >59 mL/min/1.7 3m2 [facility] Comment:Estimated glomerular filtration rate calculated using the CKD-EPI refit equation. ANION GAP 18 10 - 20 mmol/L [facility] Blood 05/10/2025 7:47 PM EDT 05/10/2025 8:15 PM EDT Latricia Woods PA-C LAB BLOOD BKR ORDERABLES Fi nal Result Performing Organization Address City/[facility] Co de Phone Number [address] [phone] * ECG 12-LEAD (05/10/2025 7:41 PM EDT) Ventricular Rate EKG/MIN 91 BPM [facility] Atrial Rate 91 BPM [facility] W[place] Interval 156 ms [facility] QRS Duration 82 ms [facility] QT Interval 372 ms [facility] QTC Interval 457 ms [facility] P [place] 36 degrees [facility] R Wave [place] 57 degrees [facility] T Wave [place] 22 degrees [facility] 05/10/2025 7:41 PM EDT 05/11/2025 2:21 PM EDT Narrative [facility] - 05/11/2025 2:21 PM EDT Normal sinus rhythm Normal ECG No previous ECGs available Confirmed by Wilson Dunn ([id number]) on 05/11/2025 2:21:01 PM us Latricia Woods PA-C ECG ORDERABLES Final Resul t [facility] from Last 3 Months Insurance ACO ACO ACO ACO ACO ACO Care Teams Trailer Steerer Relationship Specialty Start Date End Date Pcp, Unknown PCP - General 05/10/25 Additional Source Comments The information contained in this document represents components of the legal health record. It is not the complete legal health record.[facility]
--- OUTSIDE RECORDS SUMMARY | 2025-08-06 13:19 | XMS_ITS | Patient Health Record ---
Author Organization [facility] Address [address] [place] [address] Care Team Providers Care Product Safety Engineer Name Role Phone Lily Coleman Unavailable [phone] DIANE LOGAN Unavailable [phone] Allergies No Known Allergies Reason For Referral No Information Medications Medication SIG (Take, Route, Frequency, Duration) Notes Start Date End Date Status Sprintec 28 0.25-35 MG-MCG 1 tablet Oral ly Once a day; Duration: 84 days 11/12/2023 Active ProAir HFA 108 (90 Base) MCG/ACT INHALE 2 PUFFS BY MOUTH EVERY 4 HOURS NEEDED FOR COUGH Inhalation; Duration: 17 Active Doxycycline Hyclate 100 MG 1 capsule Ora lly Twice a day; Duration: 7 days 11/13/2023 Active Azithromycin 500 MG 2 tablets Orally onc e; Duration: 1 days 11/14/2023 Active Social History Tobacco Use: Social History Observation Description Date Details (start date - stop date) Never Smoker NA - NA Tobacco Use/Smoking Question Answer Notes Are you a nonsmoker Alcohol Screen (Audit-C) Question Answer Notes Did you have a drink contain ing alcohol in the past year? Yes How often did you have a dri nk containing alcohol in the past year? 2 to 4 times a month (2 points) How many drinks did you have on a typical day when you were drinking in the past year? 3 or 4 drinks (1 point) How often did you have 6 or more drinks on one occasion in the past year? Less than monthly (1 point) Points 4 Interpretation Positive Sexual History Question Answer Notes Had sex in the past 12 months (vaginal, oral, or anal)? Yes with Men only Prevention strategies discussed: Condoms Have you ever had a Sexually transmitted disease ? Yes Chlamydia? Yes GC? Yes Problems Problem Type SNOMED Code ICD Code Onset Dates Problem Status W/U Status Risk Notes Problem Asthma (167246209) Other asthma (J45.998) Active confirmed Problem Endometriosis (202582607) Endometriosis, unspecified (N80.9) Active confirmed Problem COVID-19 (880640231) COVID-19 (U07.1) Active confirmed Plan Of Treatment Pending Test Test Name Order Date ANTI-HEPATITIS C 05/11/2022 HEP. B SURF. AG 05/11/2022 SYPHILIS TESTING 05/11/2022 HIV AB-AG 4TH GENERATION 05/11/2022 PELVIC ULTRASOUND W/TRANSVAGINAL 022 Insurance Providers Payer Name Payer Address Payer Phone Subscriber Number Group Number Insured Name Patient Relationship to Insured Coverage Start Date Coverage End Date [facility] [address] [address] [place] [address] [id number] SHANEKA COTE Self - patient is the insured Medical (General) History Medical History History ICD Code Other asthma J45.998 Chlamydial infection, unspecified A74.9 Gonococcal infection, unspecified A54.9 Endometriosis, unspecified N80.9 Pelvic Pain R10.2 Personal history of other diseases of th e female genital tract Z87.42 COVID-19 U07.1 Surgical History Surgery Date(Month/Year) Appendectomy Hospitalization History Reason Date(Month/Year) See Surgical Hx
--- OUTSIDE RECORDS SUMMARY | 2025-08-06 13:19 | XMS_ITS | Encounter Summary ---
Author Organization [facility] Address [address] [place] [id number] Phone Care Team Providers Care Cashier General Name Role Phone Shirley Kendrick MD Primary Care Provider Encounter Details Date Type Department Care Team (Late st Contact Info) Description 03/07/2017 Documentation [facility] [place] [address], [place] [phone] Family Medicine, Physician [address] [place] [address] Social History Tobacco Use Types Packs/Day Years Used Date Smoking Tobacco: Never Comments:Never smoker Comments Unknown Sex and Gender Information Value Date Recorded Sex Assigned at Not on file Legal Sex Female 5:22 PM EDT Gender Identity Not on file Sexual Orientation Bisexual 01/17/2022 10 :35 AM EDT documented as of this encounter Plan of Treatment Not on file documented as of this encounter Visit Diagnoses Not on filedocumented in this encounter Care Teams Cashier General Relationship Specialty Start Date End Date Shirley Kendrick MD [address] [place] [address] PCP - General 04/26/17 12/16/22 documented as of this encounter
--- OUTSIDE RECORDS SUMMARY | 2025-08-06 13:19 | XMS_ITS | Encounter Summary ---
Author Organization [facility] Address [address] [place] [address] Phone Care Team Providers Care Inspector Shells Name Role Phone Shirley Kendrick MD Primary Care Provider [phone] Encounter Details Date Type Department Care Team (Late st Contact Info) Description 05/02/2017 Conversion Encounter [facility] [place] [address] [place] [address] Social History Tobacco Use Types Packs/Day Years [...] on filedocumented in this encounter Care Teams Inspector Shells Relationship Specialty Start Date End Date Shirley Kendrick MD [address] [place] [address] PCP - General 04/26/17 12/16/22 documented as of this encounter
--- OUTSIDE RECORDS SUMMARY | 2025-08-06 13:19 | XMS_ITS | Encounter Summary ---
Author Organization [facility] Address [address] [place] [id number] Phone Care Team Providers Care Assistant Hall Director Name Role Phone Shirley Kendrick MD Primary Care Provider Encounter Details Date Type Department Care Team (Late st Contact Info) Description 06/27/2016 Documentation [facility] [place] [address], [place] [phone] Family Medicine, Physician [address] [place] [address] Social History Tobacco Use Types Packs/Day Years [...] on filedocumented in this encounter Care Teams Assistant Hall Director Relationship Specialty Start Date End Date Shirley Kendrick MD [address] [place] [id number] PCP - General 04/26/17 12/16/22 documented as of this encounter
--- OUTSIDE RECORDS SUMMARY | 2025-08-06 13:19 | XMS_ITS | Encounter Summary ---
Author Organization [facility] Address [address] [place] [address] Phone Care Team Providers Care Pulmonary Specialist Name Role Phone Shirley Kendrick MD Primary Care Provider Encounter Details Date Type Department Care Team (Late st Contact Info) Description 10/08/2011 Documentation [facility] [place] [address], [place] [phone] Family Medicine, Physician [address] [place] [address] Social History Tobacco Use Types Packs/Day Years [...] on filedocumented in this encounter Care Teams Pulmonary Specialist Relationship Specialty Start Date End Date Shirley Kendrick MD [address] [place] [id number] PCP - General 04/26/17 12/16/22 documented as of this encounter
== END 2025-08-06 13:54 | disposition home or self-care (01) ==
LOC: HO.HMCH 12:57
PROVIDERS: PCP Internal Medicine; Visit Provider Internal Medicine
DX: L30.8 Other specified dermatitis (principal); N80.9 Endometriosis, unspecified; R55 Syncope and collapse; F32.9 Major depressive disorder, single episode, unspecified; J45.909 Unspecified asthma, uncomplicated

== ENCOUNTER → 2025-08-06 12:56 | Outpatient (BNVA) | payer OTHER, SELFPAY | PROVIDERS: Visit Provider Internal Medicine | DX: R55 Syncope and collapse (principal); D64.9 Anemia, unspecified; L30.9 Dermatitis, unspecified; N80.9 Endometriosis, unspecified; F32.9 Major depressive disorder, single episode, unspecified; J45.909 Unspecified asthma, uncomplicated | CPT/HCPCS: 99202 ==